=== PATIENT | male | born 1980 | race Caucasian/White ===

== ENCOUNTER 2021-05-09 19:25 | Emergency (ER) | payer MEDICAID ==
[~2021-05-09] VITALS: Ht 188 cm; Wt 79.5 kg
[2021-05-09 20:12] VITALS: BP 119/83
== END 2021-05-09 23:40 | disposition home or self-care (01) ==
LOC: ER 19:26
DX: U07.1 COVID-19 (principal); R05.9 Cough, unspecified; R51.9 Headache, unspecified
CPT/HCPCS: 87635; 99283; C9803